=== PATIENT | male | born 1960 | race Caucasian/White ===

== ENCOUNTER 2018-05-02 21:31 | Emergency (ER) | payer BC, MEDICAID ==
[2018-05-02 21:50] VITALS: BP 106/62; PULSE 88; RESP 18; TEMP 98.2; O2SAT 99
--- NOTE | 2018-05-02 22:01 | ED PDOC ---
Arrival/HPI - General Chief Complaint: Abnormal Skin Integrity Time Seen by Provider: 05/02/18 21:40 Historian: Patient - History of Present Illness Narrative History of Present Illness (Text): 05/02/18 22:01 Kareem Gorman is a 57 year old male, whose past medical history includes asthma and diabetes, who presents to the Emergency department complaining of a diffuse rash to the left thigh for the past 2 days. Patient reports associated pain to the area. Patient denies any fever, chills, shortness of breath, nausea, vomiting, diarrhea, neck pain, headache, dizziness , or any other complaints. Symptom Onset: Gradual Symptom Course: Unchanged Activities at Onset: Light Context: Home Past Medical History - Provider Review Nursing Documentation Reviewed: Yes - Psychiatric Hx Substance Use: No Family/Social History - Physician Review Nursing Documentation Reviewed: Yes Family/Social History: Unknown Family HX Smoking Status: Never Smoked Hx Alcohol Use: No Hx Substance Use: No Allergies/Home Meds Allergies/Adverse Reactions: Allergies No Known Allergies Allergy (Unverified 05/02/18 22:14) Review of Systems - Physician Review All systems were reviewed & negative as marked: Yes - Review of Systems Constitutional: Normal. absent: Fevers Eyes: Normal ENT: Normal Respiratory: Normal. absent: SOB, Cough Cardiovascular: Normal. absent: Chest Pain Gastrointestinal: Normal. absent: Abdominal Pain, Diarrhea, Nausea, Vomiting Genitourinary Male: Normal. absent: Dysuria, Frequency, Hematuria Musculoskeletal: Normal. absent: Back Pain, Neck Pain Skin: Rash Neurological: Normal. absent: Headache, Dizziness Endocrine: Normal Hemo/Lymphatic: Normal Psychiatric: Normal Physical Exam Vital Signs Reviewed: Yes Vital Signs Temp Pulse Resp BP Pulse Ox 05/02/18 21:45 98.2 F 88 18 106/62 99 Temperature: Afebrile Blood Pressure: Normal Pulse: Regular Respiratory Rate: Normal Appearance: Positive for: Well-Appearing, Non-Toxic, Comfortable Pain Distress: None Mental Status: Positive for: Alert and Oriented X 3 - Systems Exam Head: Present: Atraumatic, Normocephalic Pupils: Present: PERRL Extroacular Muscles: Present: EOMI Conjunctiva: Present: Normal Mouth: Present: Moist Mucous Membranes Back: Present: Normal Inspection Upper Extremity: Present: Normal Inspection. No: Cyanosis, Edema Lower Extremity: Present: NORMAL PULSES, Other (Diffusely scattered vesicular crusted lesions with erythema to left thigh area). No: Edema Neurological: Present: GCS=15, CN II-XII Intact, Speech Normal Skin: Present: Warm, Dry, Normal Color. No: Rashes Psychiatric: Present: Alert, Oriented x 3, Normal Insight, Normal Concentration Medical Decision Making ED Course and Treatment: 05/02/18 22:01 Impression: 57 year old male complaining of diffuse rash to left thigh with associated pain to the area. Differential Diagnosis included but are not limited to: shingles Plan: -- Valtrex -- Keflex -- Reassess and disposition Prior Visits: Notes and results from previous visits were reviewed. Progress Notes: - Medication Orders Current Medication Orders: Cephalexin Monohydrate (Keflex) 500 mg PO ONCE STA PRN Reason: Protocol Stop: 05/02/18 22:17 Valacyclovir HCl (Valtrex) 1 gm PO STAT STA PRN Reason: Protocol Stop: 05/02/18 22:15 - Scribe Statement The provider has reviewed the documentation as recorded by the Scribrichard Gudino All medical record entries made by the Scribe were at my direction and personally dictated by me. I have reviewed the chart and agree that the record accurately reflects my personal performance of the history, physical exam, medical decision making, and the department course for this patient. I have also personally directed, reviewed, and agree with the discharge instructions and disposition. Disposition/Present on Arrival - Present on Arrival Any Indicators Present on Arrival: No History of DVT/PE: No History of Uncontrolled Diabetes: No Urinary Catheter: No History of Decub. Ulcer: No History Surgical Site Infection Following: None - Disposition Have Diagnosis and Disposition been Completed?: Yes Diagnosis: Herpes zoster Disposition: HOME/ ROUTINE Disposition Time: 22:17 Patient Plan: Discharge Condition: GOOD Discharge Instructions (ExitCare): Shingles (ED) Additional Instructions: Take meds as prescribed/follow up with your doctor this week Prescriptions: Cephalexin [cephalexin] 500 mg PO BID #14 cap Tramadol HCl [Ultram] 50 mg PO Q6 PRN #16 tab PRN Reason: Pain, Moderate (4-7) Valacyclovir HCl [Valtrex] 1 gm PO TID #21 tablet Forms: [employer] ([employer])
== END 2018-05-02 22:50 | disposition home or self-care (01) ==
LOC: ED 21:31
DX: B02.9 Zoster without complications (principal)